=== PATIENT | female | born 1935 | race Caucasian/White ===

== ENCOUNTER 2016-12-29 21:14 | Emergency (ER) | payer OTHER ==
[~2016-12-29] VITALS: Ht 160 cm; Wt 61.7 kg
[~2016-12-29 21:14] MED LIST: ALBU2.5V IH; ALPR1TAB2 PO; ASPI325T49 PO; ATI.5 GT/PO; CALC600T56 PO; CLOP75TA PO; DEXL60EC PO; FURO-570 PO; ISOS10TA9 PO; LINA290C PO; LORA10OD44 PO; METO25TA14 PO; MONT10TA35 PO; ROBAC PO; SIMV20TA1 PO; SOLI5TAB PO; VAS5 PO; ZET10 PO; ZOLP10TA1 PO
[2016-12-29 21:19] VITALS: BP 154/72
--- NOTE | 2016-12-29 21:19 | NUR ---
LACERATION CLEANED AND PRESSURE DRESSING APPLIED. BLEEDING UNDER CONTROL. PT TOLERATED WELL.
--- NOTE | 2016-12-29 22:09 | NUR ---
PT TAKEN TO BED 11
--- NOTE | 2016-12-29 22:20 | NUR ---
81/F BIB GRANDDAUGHTER W C/O BLEEDING TO LT MIDDLE FINGER S/P LAC WITH KITCHEN KNIFE. PT REPORTS SHE WAS PUTTING AWAY THE DISHES. PT C/O 6/10 PAIN TO LEFT FINGER. BLEEDING CONTROLLED. PMH: HTN, HLD, OPEN HEART SURGERY. PT ON ASA AND PLAVIX. VSS; PATIENT POSITIONED FOR COMFORT; HOB ELEVATED; BEDRAILS UP X2; BED DOWN. ER MD MADE AWARE OF PT STATUS.
--- NOTE | 2016-12-29 22:28 | NUR ---
Dr. Mcdonald evaluating patient at bedside.
--- NOTE | 2016-12-29 23:15 | NUR ---
DR. EDDY APPLIED DERMOBOND TO LAC. PT DAVID PROCEDURE WELL
--- NOTE | 2016-12-29 23:20 | NUR ---
Patient discharged with v/s stable. Written and verbal after care instructions given and explained. Patient verbalized understanding. Ambulatory with steady gait. All questions addressed prior to discharge. Advised to follow up with PMD.
[2016-12-29 23:27] VITALS: BP 138/76
== END 2016-12-29 23:20 | disposition home or self-care (01) ==
LOC: MED 21:14
DX: S61.213A Laceration without foreign body of left middle finger without damage to nail, initial encounter (principal); E11.9 Type 2 diabetes mellitus without complications; K21.9 Gastro-esophageal reflux disease without esophagitis; I10 Essential (primary) hypertension; Z88.5 Allergy status to narcotic agent; Z79.899 Other long term (current) drug therapy; Z79.82 Long term (current) use of aspirin; W26.0XXA Contact with knife, initial encounter; Y93.89 Activity, other specified; Y92.89 Other specified places as the place of occurrence of the external cause; Y99.8 Other external cause status
CPT/HCPCS: 12001; 90471; 90715; 99283